=== PATIENT | male | born 1950 | race Caucasian/White ===

== ENCOUNTER 2016-12-16 10:48 | Inpatient (IN) | payer MEDICARE ==
[~2016-12-16] VITALS: Ht 175.3 cm; Wt 125.6 kg
[2016-12-16] MEDS ORDERED: ATOR40TA16 PO (13:20)
[2016-12-16] MEDS ORDERED: LISI40TA PO (13:20)
[2016-12-16] MEDS ORDERED: ASPI81CH CHEW (13:21)
[2016-12-16] MEDS ORDERED: CARV6.252 PO (13:21)
[2016-12-16] MEDS ORDERED: AMLO5TAB2 PO (13:21)
[2016-12-16] MEDS ORDERED: CLON0.1T PO (13:22)
[2016-12-16] MEDS ORDERED: METF500T PO (13:22)
[2016-12-16] MEDS ORDERED: ADVA250A INH (13:23)
[2016-12-21] VITALS (7 sets, daily range): BP systolic 107–130; BP diastolic 59–78; PULSE 63–82; RESP 18–20; TEMP 97–97.9; O2SAT 3–99
[2016-12-21] MEDS: CHLORHEXIDINE GLUCONATE 2 % 1 PACK (2 CLOTHS) TOP SCH (06:00)
[2016-12-21] MEDS ORDERED: INSULIN HUMAN REGULAR 1,000 UNITS/10 ML VIAL SQ PRN (06:00)
[2016-12-21] MEDS: SODIUM CHLORID 0.9% 500 ML IV SCH ×2 (06:00→22:40)
[2016-12-21] MEDS ORDERED: METOPROLOL TARTRATE 25 MG TAB PO PRN (06:00)
[2016-12-21] MEDS: POVIDONE IODINE 5% (ANTISEPSIS KIT) 4 APPLICATIONS EACH NARE SCH (06:00)
[2016-12-21] MEDS ORDERED: ALPR0.5T3 PO (06:29)
[2016-12-21] MEDS ORDERED: HEPARIN SODIUM - SQ 10,000 UNITS/ML VIAL ONE (06:56)
[2016-12-21] MEDS ORDERED: ceFAZolin 2 GM PREMIX 50 ML ONE (06:56)
[2016-12-21] MEDS ORDERED: HEPARIN SODIUM - IV 10,000 UNITS/10 ML VIAL ONE ×2 (06:56→09:19)
[2016-12-21] MEDS ORDERED: PROTAMINE SULFATE 50 MG/5 ML VIAL ONE (06:57)
[2016-12-21] MEDS: LACTATED RINGER'S 1000 ML IV SCH (06:57)
[2016-12-21] MEDS ORDERED: MIDAZOLAM HCL 2 MG/2 ML VIAL ONE (07:31)
[2016-12-21] MEDS ORDERED: DEXAMETHASONE SOD PHOS 4 MG/ML VIAL ONE (07:31)
[2016-12-21] MEDS ORDERED: FAMOTIDINE 20 MG/2 ML VIAL ONE (07:31)
[2016-12-21] MEDS ORDERED: fentaNYL CITRATE 250 MCG/5 ML AMP ONE (07:32)
[2016-12-21] MEDS ORDERED: IOHEXOL 300 MG/ML 100 ML BTL (for Rad CT) OTHER ONE (08:35)
[2016-12-21] MEDS ORDERED: BUPIVACAINE/EPINEPHRINE 0.5% PF 30 ML VIAL ONE (10:31)
[2016-12-21] MEDS ORDERED: THROMBIN (TOPICAL) 20,000 UNIT SPRAY KIT OTHER ONE (10:36)
[2016-12-21] MEDS ORDERED: ONDANSETRON HCL 4 MG/2 ML VIAL IV PUSH PRN (10:45)
[2016-12-21] MEDS ORDERED: MORPHINE SULFATE 4 MG/ML INJ IV PRN ×2 (10:45)
[2016-12-21] MEDS ORDERED: SODIUM CHLORIDE 0.9% FLUSH 5 ML FLUSH IV FLUSH PRN (10:45)
[2016-12-21] MEDS ORDERED: POTASSIUM PHOSPHATE INJ 21 MMOL in SODIUM CHLOR 0.9% 250 ML INJ 250 ML IV PRN (10:45)
[2016-12-21] MEDS ORDERED: MAGNESIUM SULFATE 1 GM PREMIX 200 ML IV PRN (10:45)
[2016-12-21] MEDS ORDERED: Post-op Orders (for Pharmacy) MISC OTHER ONE (10:45)
[2016-12-21] MEDS ORDERED: POTASSIUM CHLOR 20 MEQ PREMIX 100 ML IV PRN (10:45)
[2016-12-21] MEDS ORDERED: ACETAMINOPHEN/HYDROcodone 325 MG/5 MG TAB PO PRN (10:45)
--- NOTE | 2016-12-21 10:51 | HHI.PR ---
Immediate Post Op Note Procedure Date: Dec 21, 2016 Pre Op Diagnosis: (1) AAA (abdominal aortic aneurysm) without rupture Post Op Diagnosis: (1) AAA (abdominal aortic aneurysm) without rupture Surgeon: Willie Eaton Felt Coverer(s): Henrique Chau Procedure: Endovascular AAA repair Findings: Repaired AAA. Additional Information: NA Complications: None Specimen(s) removed: NA Estimated blood loss: 700cc Anesthesia: General, Local Drains: None Fluids: 3200 IVF Tourniquet time (min at mmHg) NA Patient to: PACU Patient Condition: Good Implant/Devices: Other Date/Time of Procedure: Other Willie Eaton DO Dec 21, 2016 10:51
[2016-12-21] MEDS ORDERED: LACTATED RINGER'S 1000 ML INJ 1,000 ML IV ONE (12:00)
[2016-12-21] MEDS ORDERED: ePHEDrine/NS 25 MG/5 ML SYR IV ONE (12:00)
[2016-12-21] MEDS ORDERED: PROPOFOL 200 MG/20 ML AMP IV ONE (12:00)
[2016-12-21] MEDS ORDERED: ONDANSETRON HCL 4 MG/2 ML VIAL IV PUSH ONE (12:00)
[2016-12-21] MEDS ORDERED: IOHEXOL 300 MG/ML 50 ML BTL (for RAD DIAG) IV ONE (12:00)
--- NOTE | 2016-12-21 18:00 | PD.VS.PN ---
Subjective POD #: 0 Procedure(s): Endovascular Aortic Repair for 7 cm AAA. Subjective/Hospital Course Minimal post op pain. Patient complained of discomfort with forbes so it was discontinued. Objective Cardiac: triphasic signals bilateral PT. provena vac in left groin. Right groin without swelling. Laboratory Laboratory Tests Test 12/21/16 12/21/16 12/21/16 12/21/16 06:53 06:55 07:14 12:35 Blood Type O NEGATIVE O NEGATIVE Antibody Screen NEGATIVE Crossmatch Leukocyte-Reduced Red Blood Cells Blood Bank Comment Hepatitis A IgM Antibody NEGATIVE Hepatitis B Surface Antigen NEGATIVE Hepatitis B Core IgM Antibody NEGATIVE Hepatitis C Antibody NEGATIVE Assessment and Plan Assessment: (1) AAA (abdominal aortic aneurysm) without rupture Status: Acute Plan Status post AAA repair. Advance diet in am. Plan for pain management overnight and hemodynamic monitoring. Willie Eaton DO, FACS Regulated Program Manager of Vascular Surgery GIOVANNA/Willie Khan DO Dec 21, 2016 18:00
[2016-12-21] MEDS: ceFAZolin 2 GM PREMIX 50 ML IV SCH (20:18)
[2016-12-21] MEDS: SODIUM CHLORIDE 0.9% FLUSH 5 ML FLUSH IV FLUSH SCH (20:19)
[2016-12-22] VITALS: BP 101/48; PULSE 64; RESP 20; TEMP 97.5; O2SAT 99
[2016-12-22] MEDS: ceFAZolin 2 GM PREMIX 50 ML IV SCH (02:06)
[2016-12-22 04:00] VITALS: PULSE 69
[2016-12-22 04:30] VITALS: BP 116/58; PULSE 69; RESP 20; TEMP 97.7; O2SAT 99
[2016-12-22 05:41] LABS: HEMATOCRIT 34.1 % (39.0-51.0); REVIEW FLAG FINAL
[2016-12-22] MEDS: CHLORHEXIDINE GLUCONATE 2 % 1 PACK (2 CLOTHS) TOP SCH (05:46)
[2016-12-22] MEDS: POVIDONE IODINE 5% (ANTISEPSIS KIT) 4 APPLICATIONS EACH NARE SCH (06:00)
[2016-12-22] MEDS: LACTATED RINGER'S 1000 ML IV SCH (06:00)
[2016-12-22 06:05] LABS: BICARBONATE 31.6 MEQ/L (21.0-32.0); MAGNESIUM 2.1 MG/DL (1.5-2.5); POTASSIUM 4.3 MEQ/L (3.5-5.1)
[2016-12-22 07:00] VITALS: BP 126/65; PULSE 65; RESP 20; TEMP 97.4; O2SAT 95
[2016-12-22 07:23] VITALS: O2SAT 97
[2016-12-22] MEDS ORDERED: ASPIRIN EC 81 MG TABEC PO SCH (09:00)
[2016-12-22] MEDS: SODIUM CHLORIDE 0.9% FLUSH 5 ML FLUSH IV FLUSH SCH (09:35)
--- NOTE | 2016-12-22 10:24 | PD.VS.PN ---
Subjective POD #: 1 Procedure(s): Endovascular Aortic Repair for 7 cm AAA. Subjective/Hospital Course Pt sitting up in chair without complaints Provena wound vac to left groin intact. Pt denies any pain and reported he has ambulated the hallway without difficulty (Sumi Cole) Objective Neuro: CN 2-12 intact Pulmonary: Lungs equal bilat with diminished BS to Lower bases Cardiac: +S1, S2 with no murmurs noted per auscultation FEN/GI: Abdomen soft and non-tender : Pt voids without complications Laboratory Laboratory Tests Test 12/21/16 12/22/16 12:35 05:26 Hepatitis A IgM Antibody NEGATIVE Hepatitis B Surface Antigen NEGATIVE Hepatitis B Core IgM Antibody NEGATIVE Hepatitis C Antibody NEGATIVE Hemoglobin 11.3 Hematocrit 34.1 Sodium Level 139 Potassium Level 4.3 Chloride Level 100 Carbon Dioxide Level 31.6 Anion Gap 7 Blood Urea Nitrogen 13 Creatinine 0.93 Estimat Glomerular Filtration 81 Rate Random Glucose 160 Calcium Level 8.5 Phosphorus Level 4.0 Magnesium Level 2.1 (Sumi Cole) Assessment and Plan Assessment: (1) AAA (abdominal aortic aneurysm) without rupture Status: Resolved Plan Status post AAA repair Pt reported no pain or discomfort last night Pt was able to eat this am without complaints Sumi OCASIO [facility] [phone] Discharge Planning D/C planning for this afternoon after lunch (Sumi Cole) Discharge Planning I agree with above A/P. Follow up in a week in office. Patient has office and cell phone if any questions in the interim. Willie Eaton DO, FACS Criminal Analyst of Vascular Surgery /[place] (Willie Eaton DO) Sumi Cole Dec 22, 2016 10:24 Willie Eaton DO Dec 22, 2016 13:03
--- NOTE | 2016-12-22 11:36 | PD.VS.DC ---
Discharge Summary Admission Date: Dec 21, 2016 at 05:16 Discharge Date: Dec 22, 2016 Admission Diagnosis: (1) AAA (abdominal aortic aneurysm) without rupture Discharge Diagnosis: (1) AAA (abdominal aortic aneurysm) without rupture Status: Resolved Brief History from admission Pt was admitted for AAA repair Procedure(s): Endovascular Aortic Repair for 7 cm AAA. Significant Findings GENERAL: A&OX4, NAD, pleasant 66 obese male patient SKIN: Warm and dry. Right groin with incision intact, left groin with provena wound vac intact NECK: Supple, trachea midline. No JVD or lymphadenopathy CARDIOVASCULAR: + S1,S2 without murmurs, gallops, or rubs. RRR RESPIRATORY: Breath sounds diminished to lower bases. No accessory muscle use. GASTROINTESTINAL: Abdomen soft, non-tender, nondistended. MUSCULOSKELETAL: No cyanosis, slight 1+ edema to bilat feet, Bilat Palpable DP Laboratory Tests Test 12/22/16 05:26 Hemoglobin 11.3 GM/DL (13.0-17.0) Hematocrit 34.1 % (39.0-51.0) Estimat Glomerular Filtration 81 ML/MIN (>89) Rate Random Glucose 160 MG/DL (74-106) Hospital Course: Pt was admitted for AAA surgical intervention (EVAR) Pt has done well post op without complaints Will continue to monitor patient in our OPC Pt is scheduled for follow-up on 12/30/16 Allergies Coded Allergies Type Severity Reaction Last Updated Verified No Known Allergies 12/21/16 No 12/20///////// 06:00 18:00 06:00 18:00 06:00 18:00 Intake Total 620 ml 960 ml Output Total 370 ml 1025 ml Balance 250 ml -65 ml Intake Oral 120 ml 360 ml IV Total 500 ml 600 ml Output Urine Total 370 ml 1025 ml # Voids 3 # Bowel Movements 0 0 Laboratory Tests Test 12/21/16 12/21/16 12/21/16 12/21/16 06:53 06:55 07:14 12:35 Blood Type O NEGATIVE O NEGATIVE Antibody Screen NEGATIVE Crossmatch Leukocyte-Reduced Red Blood Cells Blood Bank Comment Hepatitis A IgM Antibody NEGATIVE Hepatitis B Surface Antigen NEGATIVE Hepatitis B Core IgM Antibody NEGATIVE Hepatitis C Antibody NEGATIVE Test 12/22/16 05:26 Hemoglobin 11.3 GM/DL Hematocrit 34.1 % Sodium Level 139 MEQ/L Potassium Level 4.3 MEQ/L Chloride Level 100 MEQ/L Carbon Dioxide Level 31.6 MEQ/L Anion Gap 7 MEQ/L Blood Urea Nitrogen 13 MG/DL Creatinine 0.93 MG/DL Estimat Glomerular Filtration 81 ML/MIN Rate Random Glucose 160 MG/DL Calcium Level 8.5 MG/DL Phosphorus Level 4.0 MG/DL Magnesium Level 2.1 MG/DL Procedure Category Date Status Time Type And Screen BBK 12/21/16 Complete 05:35 Chlorhexidine 2% MED 12/21/16 In Process Cloth (Chlorhexidine 06:00 Povidone Iod 5% MED 12/21/16 In Process Antisepsis Kit 06:00 Lactated Ringer's MED 12/21/16 In Process 1000 Ml Inj (Lr 1000 M 06:00 Sodium Chlorid 0.9% MED 12/21/16 Complete 500 Ml Inj (Ns 500 M 06:00 Insulin Human Regular MED 12/21/16 Complete Inj (Novolin R Inj 06:00 Metoprolol Tartrate MED 12/21/16 Complete (Lopressor) 06:00 Heparin Inj (Heparin MED 12/21/16 Complete Inj) 06:56 Cefazolin 2 Gm Premix MED 12/21/16 Complete (Ancef 2 Gm Premix 06:56 Heparin Inj (Heparin MED 12/21/16 Complete Inj) 06:56 Protamine Sulfate Inj MED 12/21/16 Complete (Protamine Sulfate 06:57 Red Blood Cells (Rbc) BBK 12/21/16 In Process 07:03 Famotidine Inj MED 12/21/16 Complete (Pepcid Inj) 07:31 Midazolam Inj (Versed MED 12/21/16 Complete Inj) 07:31 Dexamethasone Inj MED 12/21/16 Complete (Decadron Inj) 07:31 Fentanyl Inj MED 12/21/16 Complete (Fentanyl Inj) 07:32 Iohexol 300 Inj (Rad MED 12/21/[address]) (Omnipaque 300 08:35 Heparin Inj (Heparin MED 12/21/16 Complete Inj) 09:19 Bupivacaine-Epi Pf MED 12/21/16 Complete 0.5% Inj (Sensorcaine 10:31 Thrombin Top [place] MED 12/21/16 Complete (Thrombin Top [place]) 10:36 Activity Oob Ad Cheri TADEO 12/21/16 In Process 10:45 Diet Heart Healthy DIET 12/22/16 Transmitted Breakfast ^ Saline Lock TADEO 12/21/16 In Process 10:45 Sodium Chloride 0.9% MED 12/21/16 In Process Flush (Ns Flush) 10:45 Sodium Chloride 0.9% MED 12/21/16 In Process Flush (Ns Flush) 21:00 Potassium Chlor 20 MED 12/21/16 In Process Meq Premix (Kcl 20 Me 10:45 Potassium Phosphate MED 12/21/16 In Process Inj (Potassium Phosp 10:45 Magnesium Sulfate 1 MED 12/21/16 In Process Gm Premix (Magnesium 10:45 Ondansetron Inj MED 12/21/16 In Process (Zofran Inj) 10:45 Acetamin-Hydrocod MED 12/21/16 In Process 325-5 Mg ([place] 5-325 10:45 Oxycodone (Roxicodone) MED 12/21/16 In Process 10:45 Morphine Inj MED 12/21/16 In Process (Morphine Inj) 10:45 Morphine Inj MED 12/21/16 In Process (Morphine Inj) 10:45 Aspirin Ec (Ecotrin MED 12/22/16 In Process Ec) 09:00 Hgb & Hct LAB 12/22/16 Complete 06:00 Phosphorus (Po4) LAB 12/22/16 Complete 06:00 Magnesium (Mg) LAB 12/22/16 Complete 06:00 Basic Metabolic Panel LAB 12/22/16 Complete (Bmp) 06:00 Post-Op Orders (For MED 12/21/16 Complete Pharmacy) (Post-Op O 10:45 Hepatitis Profile LAB 12/21/16 Complete 11:22 Admit To Inpatient ADMITTING 12/21/16 Transmitted Inpatient ADMITTING 12/21/16 Transmitted Certification Am Admit Pre Op [facility] 12/21/16 Complete ^ Other Nursing Orders TADEO 12/21/16 In Process 14:39 Cefazolin 2 Gm Premix MED 12/21/16 Complete (Ancef 2 Gm Premix 20:00 Budeson-Formot MED 12/22/16 In Process 160-4.5 Mg Inh 21:00 Aspirin Chew (Aspirin MED 12/23/16 Logged Chew) 09:00 Atorvastatin (Lipitor) MED 12/23/16 Logged 09:00 Metformin (Glucophage) MED 12/22/16 Logged 18:00 (NF) MED 12/22/16 Logged Fluticasone-Salmeterol 21:00 (Nf) Lisinopril MED 12/23/16 Logged 09:00 Carvedilol (Coreg) MED 12/22/16 Logged 21:00 Attending Discharge DISCHARGE 12/22/16 Transmitted Order Vital Signs Date Time Temp Pulse Resp B/P Pulse Ox O2 Delivery O2 Flow Rate FiO2 12/22/16 07:23 97 21 12/22/16 07:00 65 12/22/16 07:00 93 Nasal Cannula 12/22/16 07:00 97.4 65 20 126/65 95 12/22/16 04:30 97.7 69 20 116/58 99 12/22/16 04:00 69 12/22/16 04:00 99 Nasal Cannula 4.00 12/22/16 00:00 97.5 64 20 101/48 99 12/21/16 23:55 64 12/21/16 23:30 99 Nasal Cannula 4.00 12/21/16 21:30 97 Nasal Cannula 4.00 12/21/16 20:00 97.5 66 20 125/69 99 12/21/16 20:00 66 12/21/16 19:57 99 Nasal Cannula 4.00 12/21/16 15:00 97.0 71 20 107/59 98 12/21/16 15:00 97 Nasal Cannula 4.00 12/21/16 12:00 97 Nasal Cannula 4.00 12/21/16 11:36 95 Nasal Cannula 4.00 12/21/16 11:07 97.7 82 20 118/62 95 12/21/16 06:31 97.9 63 18 130/78 3 Discharge Condition: Good Discharge Disposition: Discharge Home Discharge Instructions: Follow-up on 12/30/16 at 1145 Keep the Provena wound vac on left groin till OP appointment Leave incision to r groin open to air Call the office to report any new onset fever, redness, drainage or swelling Sumi OCASIO [facility]/[place] [phone] Any questions or concerns: Call [facility] Heart and Vascular Surgery at [facility] [phone] Sumi Cole Dec 22, 2016 11:36
[2016-12-22 11:40] VITALS: BP 140/63; PULSE 75; PULSE 78; RESP 18; TEMP 97.9; O2SAT 94
[2016-12-22] MEDS ORDERED: NORMOSOL R INJ 2,000 ML IV ONE (12:00)
[2016-12-22] MEDS ORDERED: PERC5TAB12 PO (12:03)
[2016-12-22] MEDS ORDERED: metFORMIN HCL 500 MG TAB PO SCH (18:00)
[2016-12-22] MEDS ORDERED: BUDESONIDE-FORMOTEROL 160/4.5 MCG INHALER INH SCH ×2 (21:00)
[2016-12-22] MEDS ORDERED: CARVEDILOL 3.125 MG TAB PO SCH (21:00)
--- NOTE | 2016-12-23 06:27 | MP ---
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 PROCEDURE 1. Diagnostic catheter placement in the abdominal aorta. 2. Placement of modular Dunlow Excluder Endograft for treatment of abdominal aortic aneurysm. 3. Open femoral artery approach left groin for exposure. IMPLANT Dunlow Exclude endograft. Main body as a 28-mm diameter. Right limb is 14-mm proximally and 28-mm distally. Left limb is a 40-mm proximally and 23-mm distally. SURGEON MD Uma MAP COLORER MD Kandi IV FLUIDS 3.5 liters of crystalloid. ESTIMATED BLOOD LOSS 700 cc URINE OUTPUT N/A. COMPLICATIONS None. DISPOSITION To PACU. PROCEDURE The patient was prepped and draped in sterile fashion from nipples to the knees bilaterally. The patient was given 2 grams of IV Ancef as a preoperative antibiotic. On the bilateral sides we used ultrasound to get access with an 18-gauge needles exchanged for 5-Spanish sheaths. On the right side, after we exchanged and dilated with a 5-Spanish sheath, I placed two Perclose a 4 and 7 o'clock. After I deployed my Percloses, I advanced a wire through the right sheath. On the left side I attempted to deploy three Perclose. The first Perclose appeared to deploy properly but the latter two appeared to be a ridge of calcium above the area of the Perclose. It should note that my wire was bent and I had to remove it as the patient was developing hematoma in the left groin. Based on this, I made an oblique incision above the inguinal crease with a scalpel and electrocautery. I dissected down to the level of the common femoral artery/external iliac artery and used two large profunda clamps in order to get proximal and distal control. It should be noted that was the most of the blood loss that occurred during the case. It should be noted that there were two holes in this area that had to be controlled. There was temporary control with a 5-0 Prolene on a larger needle. Once we had control of these areas, we were able to more formally dissected out the common femoral artery. I then made a stab incision inferiorly to this and was able to place a 5-Spanish sheath through this area and then ultimately up-size to a 16-Spanish sheath. I used Cook urinary dilators on the right to up-size to an 18-Spanish sheath. After I had access, I used an Omni-Flush catheter and a Lunderquist wire on the left as a trent wire and then on the right side I used another Lunderquist wire to get access. I shot an aortogram which identified the bilateral renal arteries. I then advanced my main body up through the right groin, through the sheath. It should be noted that my Omni-Flush catheter was in the infrarenal abdominal aorta at the level of the renal arteries whenever I took my diagnostic arteriogram. It should be noted that, once I partially deployed the main body, I cannulated the left lateral gate with a Kumpe catheter and stiff angled Glidewire. Note that, after I cannulated it, we did place a balloon in the Endograft and inflated it to make sure that there was somewhat of a dumbbell appearance and that the wire was indeed in the contralateral gate. Once I cannulated the groin, then we did a retrograde arteriogram to assist with length on the left and we deployed the limb which was 14 mm in diameter proximally and 23 mm in diameter distally. On the right side we used a 14 mm proximally with a 25 mm diameter distally. Before we deployed the ipsilateral limb, we did have to completely deploy the main body. We then used a Q50 balloon in order to balloon out any irregularities and make sure that the Endograft was in place. We shot an infrarenal abdominal aortogram. The bilateral renal arteries were patent. The bilateral common internal and external iliac arteries were patent. There appeared to be possibly a late type 2 endoleak, otherwise there was no endoleak noted. At the end of the case I cinched down the two Perclose on the right without any issues. On the left side we closed with three interrupted 5-0 Prolenes for the arteriotomy and then used interrupted 2-0 and 3-0 Vicryl absorbable sutures and 4-0 Monocryl for the skin. I did not use Dermabond on the left and for the dressing on the right I used Dermabond for the skin. The patient tolerated the procedure well. DO ROSELIA Casey/TERRANCE /5:21 PM /5:57 AM
[2016-12-23] MEDS ORDERED: LISINOPRIL 20 MG TAB PO SCH (09:00)
[2016-12-23] MEDS ORDERED: ASPIRIN 81 MG CHEW TAB CHEW SCH (09:00)
[2016-12-23] MEDS ORDERED: ATORVASTATIN 40 MG TAB PO SCH (09:00)
== END 2016-12-22 13:44 | disposition hospice, home (50) | DRG 269 ==
LOC: HSDI 12-21 05:16 → EDUNIT# 12-21 07:30 → HCVR 12-21 11:07
PROVIDERS: ADMIT Surgery; ATTEND Surgery
PROC: 04V03DZ Restriction of Abdominal Aorta with Intraluminal Device, Percutaneous Approach (ICD-10-PCS; principal; 2016-12-21 07:40)
PROC: B4101ZZ Fluoroscopy of Abdominal Aorta using Low Osmolar Contrast (ICD-10-PCS; 2016-12-21 07:40)
DX: I71.4 Abdominal aortic aneurysm, without rupture (principal); I72.3 Aneurysm of iliac artery
CPT/HCPCS: 75630; 80048; 80074; 82948; 83735; 84100; 85014; 85018; 86850; 86900; 86901; 86920; C1725; C1769; J0690; J1100; J1644; J2250; J2405; J2720; J3010; J7120; Q9967

== ENCOUNTER → 2016-12-16 | Outpatient (CLI) | payer MEDICARE ==
[~2016-12-16] MED LIST: ADVA250A INH; ALPR0.5T3 PO; AMLO5TAB2 PO; ASPI81CH CHEW; ATOR40TA16 PO; CARV6.252 PO; CLON0.1T PO; LISI40TA PO; METF500T PO; PERC5TAB12 PO
[2016-12-16 12:01] LABS: HEMATOCRIT 43.2 % (39.0-51.0); MEAN CELL VOLUME 88.5 FL (80.0-100.0); MEAN CORPUSCULAR HEMOGLOBIN 30.8 PG (27.0-34.0); MEAN CORPUSCULAR HGB CONC 34.8 % (32.0-36.0); PLATELET COUNT 132 TH/MM3 (150-450); RED BLOOD COUNT 4.88 MIL/MM3 (4.50-5.90); RED CELL DISTRIBUTION WIDTH 14.5 % (11.6-17.2); REVIEW FLAG FINAL; WHITE BLOOD COUNT 9.2 TH/MM3 (4.0-11.0)
[2016-12-16 12:12] LABS: APTT (PATIENT) 32.1 SEC (24.3-30.1); PROTHROMBIN TIME - PATIENT 10.5 SEC (9.8-11.6)
[2016-12-16 12:20] LABS: BICARBONATE 33.2 MEQ/L (21.0-32.0)
--- NOTE | 2016-12-16 12:55 | RADRPT ---
EXAM DATE/TIME: 12/16/2016 12:25 [place] COMPARISON: No previous studies available for comparison. INDICATIONS : Evaluate for penumonia, pneumothorax or comunnicable disease. Pre op for AAA. MEDICAL HISTORY : None. SURGICAL HISTORY : None. ENCOUNTER: Initial ACUITY: 1 day PAIN SCORE: 0/10 LOCATION: chest FINDINGS: PA and lateral views of the chest demonstrate the lungs to be symmetrically aerated without evidence of mass, infiltrate or effusion. Mild compensated cardiomegaly is evident.. Osseous structures are intact. CONCLUSION: No acute disease. Daniel John MD FACR on December 16, 2016 at 12:53 Board Certified Radiologist. This report was verified electronically.
[2016-12-16 13:28] LABS: BLOOD, URINE NEG (NEG); COMMENT (UR) CULT NOT INDICATED; CULTURE IF INDICATED CULT NOT INDICATED; GLUCOSE,URINE NEG (NEG); KETONE, URINE NEG (NEG); NITRITE,URINE NEG (NEG); PH, URINE 6.5 (5.0-8.5); URINE COLOR LIGHT-YELLOW (YELLW/STRAW)
--- NOTE | 2016-12-17 14:09 | EKG ---
Date Performed: 12/16/2016 Time Performed: 12:07:38 PTAGE: 66 years EKG: Sinus rhythm NORMAL ECG NO PREVIOUS TRACING DOCTOR: Harsha Ojeda Interpretating Date/Time 12/17/2016 14:00:21
== END ==
LOC: CPRE 10:42
PROVIDERS: ATTEND Surgery
DX: Z01.810 Encounter for preprocedural cardiovascular examination (principal); Z01.811 Encounter for preprocedural respiratory examination; Z01.812 Encounter for preprocedural laboratory examination; I71.4 Abdominal aortic aneurysm, without rupture
CPT/HCPCS: 36415; 71020; 80048; 81001; 85027; 85610; 85730; 93005